=== PATIENT | female | born 1935 | race American Indian/Alaskan Native ===

== ENCOUNTER 2018-02-13 22:58 | Emergency (ER) | payer MEDICARE ==
[2018-02-13 23:47] VITALS: BP 186/90; PULSE 82; RESP 20; TEMP 98.7; O2SAT 100
[2018-02-14] MEDS ORDERED: Lidocaine 5% Patch TD STA (00:25)
[2018-02-14] MEDS ORDERED: Lidocaine 5% Patch TD ONE (00:35)
--- NOTE | 2018-02-14 00:39 | C.PDOC ---
History Of Present Illness Patient is an 82 y/o female, with a Hx of DM and HTN, who presents to the ED with a complaint of right sided neck pain for the last 5 days after a long car ride. Patient reports pain worsens with neck rotation and worsened today, prompting visit. Denies any numbness, tingling, weakness, fever, chills, chest pain, or shortness of breath. No analgesics used. Time Seen by Provider: 02/14/18 00:15 Chief Complaint (Nursing): Back Pain History Per: Patient History/Exam Limitations: no limitations Onset/Duration Of Symptoms: Days (5), Worse Since Current Symptoms Are (Timing): Worse Exacerbating Factor(s): Turning, Movement Recent travel outside of the [place]: No Past Medical History Reviewed: Historical Data, Nursing Documentation, Vital Signs Vital Signs: Last Vital Signs Temp 98.7 F 02/13/18 23:41 Pulse 82 02/13/18 23:41 Resp 20 02/13/18 23:41 BP 186/90 H 02/13/18 23:41 Pulse Ox 100 02/14/18 01:07 - Medical History PMH: Diabetes, HTN Surgical History: No Surg Hx Family History: States: No Known Family Hx - Social History Hx Tobacco Use: No Hx Alcohol Use: No Hx Substance Use: No Review Of Systems Constitutional: Negative for: Fever, Chills Cardiovascular: Negative for: Chest Pain Respiratory: Negative for: Shortness of Breath Musculoskeletal: Positive for: Neck Pain Neurological: Negative for: Weakness, Numbness Physical Exam - Physical Exam Appears: No Acute Distress Skin: Normal Color, Warm, Dry Head: Atraumatic, Normacephalic Eye(s): bilateral: PERRL, EOMI Oral Mucosa: Moist Neck: Decreased ROM (when turning to the left), No Midline Cervical Tenderness, Paracervical Tenderness (mild to the right), Other (mild trapezius tenderness) Chest: Symmetrical Cardiovascular: Rhythm Regular, No Murmur Respiratory: Normal Breath Sounds, No Rales, No Rhonchi, No Wheezing Gastrointestinal/Abdominal: Soft, No Tenderness, No Guarding, No Rebound Neurological/Psych: Oriented x3, Normal Speech, Normal Cognition, Normal Cranial Nerves, Other (no focal deficits) ED Course And Treatment O2 Sat by Pulse Oximetry: 100 Progress Note: Tylenol and lidoderm adminsitered. On re-eval, patient is resting comfortably and stable for discharge. Medical Decision Making Medical Decision Making: pt feeling better after tylenol and lidocaine patch. d/c home wiht tylenol and recommend aspercreme Disposition Counseled Patient/Family Regarding: Diagnosis, Need For Followup, Rx Given - Disposition Referrals: Mony Vazquez MD [Staff Provider] - Disposition: HOME/ ROUTINE Disposition Time: 01:03 Condition: IMPROVED Additional Instructions: Please take Tylenol as prescribed., Remove patch after 12 hours. Warm compresses to area several times a day. Try Aspercreme. Follow up with Dr Vazquez on Friday. Return to ER for any worse symptoms. Prescriptions: Acetaminophen [Tylenol 325mg tab] 650 mg PO Q4 #50 tab Instructions: Cervical Muscle Strain (DC) Forms: [facility] ([place]), General Discharge Instructions - Clinical Impression Clinical Impression: Cervical strain, acute - Scribe Statement The provider has reviewed the documentation as recorded by the Scribe Niecy Macias All medical record entries made by the Scribe were at my direction and personally dictated by me. I have reviewed the chart and agree that the record accurately reflects my personal performance of the history, physical exam, medical decision making, and the department course for this patient. I have also personally directed, reviewed, and agree with the discharge instructions and disposition.
== END 2018-02-14 01:16 | disposition home or self-care (01) ==
LOC: C.ER 22:58
DX: S16.1XXA Strain of muscle, fascia and tendon at neck level, initial encounter (principal); X58.XXXA Exposure to other specified factors, initial encounter; E11.9 Type 2 diabetes mellitus without complications; I10 Essential (primary) hypertension